=== PATIENT | male | born 1965 | race Caucasian/White ===

== ENCOUNTER 2016-07-11 00:55 | Emergency (ER) | payer MEDICAID ==
[~2016-07-11] VITALS: Ht 172.7 cm; Wt 127.0 kg
[~2016-07-11 00:55] MED LIST: ALPR1TAB2 PO; LISI-603 PO
[2016-07-11 01:31] VITALS: BP 135/81
[2016-07-11] MEDS ORDERED: IBUPROFEN 400 MG TABLET ONE (01:55)
[2016-07-11] MEDS ORDERED: IBUPROFEN 400 MG TABLET PO ONE (02:00)
== END 2016-07-11 03:13 | disposition home or self-care (01) ==
LOC: ER 01:01
DX: M25.562 Pain in left knee (principal); M25.561 Pain in right knee; E11.9 Type 2 diabetes mellitus without complications; I10 Essential (primary) hypertension; F41.9 Anxiety disorder, unspecified; F32.9 Major depressive disorder, single episode, unspecified; Z87.442 Personal history of urinary calculi
CPT/HCPCS: 73564 ×2; 99284; A4606; Z7610

== ENCOUNTER 2016-07-20 18:02 | Emergency (ER) | payer MEDICAID ==
[~2016-07-20] VITALS: Ht 172.7 cm; Wt 132.4 kg
--- NOTE | 2016-07-20 18:02 | NUR ---
bib self, cc: bilateral lower extremity edema x 3 days. pt ambulatory with steady gait. painful when walking. vss. nad noted. rr even and unlabored. pending md carney.
--- NOTE | 2016-07-20 19:00 | NUR ---
REPORT REC'D FROM LORENA ARTEAGA FOR LINDA.
--- NOTE | 2016-07-20 19:05 | NUR ---
lab at bedside for draw
[2016-07-20 19:13] LABS: BASOPHILS # (AUTO) 0.1 /CMM (0.0-0.2); BASOPHILS % (AUTO) 0.9 % (0.0-2.0); EOSINOPHILS # (AUTO) 0.5 /CMM (0.0-0.7); EOSINOPHILS % (AUTO) 5.4 % (0.0-6.0); HEMATOCRIT 35 % (39-51); HEMOGLOBIN 11.9 g/dL (13.5-17.5); LYMPHOCYTES # (AUTO) 2.1 /CMM (0.8-4.8); LYMPHOCYTES % (AUTO) 25.1 % (20.0-44.0); MEAN CORPUSCULAR HEMOGLOBIN 29 PG (26.0-33.0); MEAN CORPUSCULAR HGB CONC 34 g/dl (31.0-36.0); MEAN CORPUSCULAR VOLUME 85 fL (80-96); MONOCYTES # (AUTO) 0.6 /CMM (0.1-1.30); MONOCYTES % (AUTO) 6.6 % (2.0-12.0); NEUTROPHILS # (AUTO) 5.3 /CMM (1.8-8.9); PLATELET COUNT (AUTO) 353 /CMM (150-450); RDW COEFFICIENT OF VARIATION 12.7 (11.5-15.0); RED BLOOD CELL COUNT(AUTO) 4.17 MIL/uL (4.5-6.0); WHITE BLOOD COUNT (AUTO) 8.6 K/uL (4.3-11.0)
[2016-07-20 19:19] LABS: CALCIUM, SERUM 9.2 mg/dL (8.5-10.1); CREATININE 1.3 mg/dL (0.6-1.3); POTASSIUM 5.1 mmol/L (3.5-5.1)
--- NOTE | 2016-07-20 19:27 | NUR ---
VENOUS DUPLEX IN PROGRESS AT THE BEDSIDE.
[2016-07-20] MEDS ORDERED: FUROSEMIDE 20 MG/2 ML VIAL IV ONE (19:30)
[2016-07-20] MEDS ORDERED: FUROSEMIDE 20 MG/2 ML VIAL ONE (19:51)
--- NOTE | 2016-07-20 20:14 | NUR ---
medicated pt as ordered
--- NOTE | 2016-07-20 20:15 | NUR ---
DR. BENEDICT IS AT THE BEDSIDE SPEAKING TO THE PT.
--- NOTE | 2016-07-20 20:38 | NUR ---
Patient discharged to home in stable condition. Written and verbal after care instructions given. Patient verbalizes understanding of instruction AND RX. PT AMBULATED OUT WITH A STEADY GAIT. VSS. PT'S IS PICKING PT UP. PT IS WAITING IN THE LOBBY.
[2016-07-20 20:42] VITALS: BP 147/72
== END 2016-07-20 20:43 | disposition home or self-care (01) ==
LOC: ER 18:09
DX: R60.0 Localized edema (principal); M25.561 Pain in right knee; I10 Essential (primary) hypertension; E11.9 Type 2 diabetes mellitus without complications; Z79.899 Other long term (current) drug therapy; Z87.442 Personal history of urinary calculi; M25.562 Pain in left knee; F32.9 Major depressive disorder, single episode, unspecified; F41.9 Anxiety disorder, unspecified
CPT/HCPCS: 36415; 71010-TC; 80048-TC; 85025-TC; 93970-TC; A4606; J1940; Z7610

== ENCOUNTER 2017-01-02 16:11 | Emergency (ER) | payer MEDICAID ==
[~2017-01-02] VITALS: Ht 175.3 cm; Wt 140.6 kg
--- NOTE | 2017-01-02 17:15 | NUR ---
[facility] [employer] and EMS to the ER for treatment of RFA laceration after he punch a picture frame.
--- NOTE | 2017-01-02 17:27 | NUR ---
LINE STARTED ON R AC G 20, BLOOD AND CULTURES DRAWN FROM LINE AND SENT TO LAB
[2017-01-02] MEDS ORDERED: CLINDAMYCIN 900 MG in IV D5W 50 ML IV SCH (17:30)
[2017-01-02 17:31] LABS: BASOPHILS # (AUTO) 0.1 /CMM (0.0-0.2); BASOPHILS % (AUTO) 0.7 % (0.0-2.0); EOSINOPHILS # (AUTO) 0.4 /CMM (0.0-0.7); EOSINOPHILS % (AUTO) 4.4 % (0.0-6.0); HEMATOCRIT 39 % (39-51); HEMOGLOBIN 12.8 g/dL (13.5-17.5); LYMPHOCYTES % (AUTO) 23.7 % (20.0-44.0); MEAN CORPUSCULAR HEMOGLOBIN 28 PG (26.0-33.0); MEAN CORPUSCULAR HGB CONC 33 g/dl (31.0-36.0); MEAN CORPUSCULAR VOLUME 84 fL (80-96); MONOCYTES # (AUTO) 0.5 /CMM (0.1-1.30); MONOCYTES % (AUTO) 6.5 % (2.0-12.0); NEUTROPHILS # (AUTO) 5.2 /CMM (1.8-8.9); NEUTROPHILS % (AUTO) 64.7 % (43.0-81.0); PLATELET COUNT (AUTO) 351 /CMM (150-450); RDW COEFFICIENT OF VARIATION 12.4 (11.5-15.0); RED BLOOD CELL COUNT(AUTO) 4.59 MIL/uL (4.5-6.0); WHITE BLOOD COUNT (AUTO) 8.3 K/uL (4.3-11.0)
[2017-01-02 17:47] LABS: ALBUMIN 3.3 g/dL (3.4-5.0); BILIRUBIN,DIRECT 0.1 mg/dL (0.0-0.2); BILIRUBIN,TOTAL 0.3 mg/dL (0.2-1.0); CREATININE 0.8 mg/dL (0.6-1.3)
[2017-01-02] MEDS ORDERED: SILVER SULFADIAZINE CREAM 25 GM TUBE TP ONE (18:00)
[2017-01-02] MEDS ORDERED: IV NS 0.9% 1,000 ML BAG IV ONE (18:00)
[2017-01-02] MEDS ORDERED: SILVER SULFADIAZINE CREAM 25 GM TUBE ONE (18:34)
--- NOTE | 2017-01-02 19:40 | NUR ---
Patient discharged to home in stable condition. Written and verbal after care instructions given. Patient verbalizes understanding of instruction.IV removed. Catheter intact and site benign. Pressure and 4x4 applied to site. No bleeding noted.
[2017-01-02 19:41] VITALS: BP 152/97
[2017-01-04] MEDS ORDERED: CLIN300C97 PO (12:34)
== END 2017-01-02 19:42 | disposition home or self-care (01) ==
LOC: ER 16:13
DX: L03.115 Cellulitis of right lower limb (principal); E11.65 Type 2 diabetes mellitus with hyperglycemia; E66.01 Morbid (severe) obesity due to excess calories; I87.2 Venous insufficiency (chronic) (peripheral); L97.519 Non-pressure chronic ulcer of other part of right foot with unspecified severity; F41.9 Anxiety disorder, unspecified; F32.9 Major depressive disorder, single episode, unspecified; Z87.442 Personal history of urinary calculi; Z90.89 Acquired absence of other organs
CPT/HCPCS: 36415; 80048; 80076; 82962; 83605; 85025; 87040 ×2; 93971; 96361; 96365; 99285; A4606; J3490; J7030; J7060

== ENCOUNTER 2017-01-04 06:37 | Inpatient (IN) | payer MEDICAID ==
[~2017-01-04] VITALS: Ht 172.7 cm; Wt 140.6 kg
--- NOTE | 2017-01-04 07:00 | NUR ---
PT BIB SELF FROM HOME, PT HERE FOR A WOUND CHECK FROM 2 DAYS AGO.
--- NOTE | 2017-01-04 07:15 | NUR ---
RAC #18 IV ACCESS. BLOOD SAMPLE COLLECTED SENT TO LAB.
[2017-01-04] MEDS ORDERED: hydrALAZINE HCL IV 20 MG VIAL ONE (07:17)
[2017-01-04] MEDS ORDERED: ONDANSETRON HCL/PF 4 MG/2 ML VIAL ONE (07:17)
[2017-01-04] MEDS ORDERED: MORPHINE SULFATE INJ 2 MG/ML DISP.SYRIN ONE (07:18)
[2017-01-04] MEDS ORDERED: hydrALAZINE HCL IV 20 MG VIAL IV ONE (07:30)
[2017-01-04] MEDS ORDERED: ONDANSETRON HCL/PF - ER 4 MG/2 ML VIAL IV ONE (07:30)
[2017-01-04] MEDS ORDERED: MORPHINE SULFATE INJ 2 MG/ML DISP.SYRIN IV ONE (07:30)
[2017-01-04] MEDS ORDERED: PIPERACILLIN /TAZOBACTAM 3.375 G in IV D5W 50 ML IV ONE (07:30)
[2017-01-04] MEDS ORDERED: IV NS 0.9% 1,000 ML BAG IV ONE (07:30)
[2017-01-04 07:36] LABS: BASOPHILS # (AUTO) 0.1 /CMM (0.0-0.2); BASOPHILS % (AUTO) 0.7 % (0.0-2.0); EOSINOPHILS # (AUTO) 0.6 /CMM (0.0-0.7); EOSINOPHILS % (AUTO) 6.1 % (0.0-6.0); HEMATOCRIT 38 % (39-51); HEMOGLOBIN 12.6 g/dL (13.5-17.5); LYMPHOCYTES # (AUTO) 2.5 /CMM (0.8-4.8); LYMPHOCYTES % (AUTO) 26.4 % (20.0-44.0); MEAN CORPUSCULAR HEMOGLOBIN 28 PG (26.0-33.0); MEAN CORPUSCULAR HGB CONC 33 g/dl (31.0-36.0); MEAN CORPUSCULAR VOLUME 84 fL (80-96); MONOCYTES # (AUTO) 0.8 /CMM (0.1-1.30); NEUTROPHILS # (AUTO) 5.7 /CMM (1.8-8.9); NEUTROPHILS % (AUTO) 58.8 % (43.0-81.0); PLATELET COUNT (AUTO) 351 /CMM (150-450); RDW COEFFICIENT OF VARIATION 13.6 (11.5-15.0); RED BLOOD CELL COUNT(AUTO) 4.51 MIL/uL (4.5-6.0); WHITE BLOOD COUNT (AUTO) 9.6 K/uL (4.3-11.0)
--- NOTE | 2017-01-04 07:44 | NUR ---
HOT[employer] SALES REPRESENTATIVE AT BEDSIDE
[2017-01-04 07:48] LABS: ALBUMIN 3.3 g/dL (3.4-5.0); BILIRUBIN,TOTAL 0.3 mg/dL (0.2-1.0); CALCIUM, SERUM 8.7 mg/dL (8.5-10.1); CREATININE 0.8 mg/dL (0.6-1.3); POTASSIUM 3.7 mmol/L (3.5-5.1)
--- NOTE | 2017-01-04 08:19 | NUR ---
DR FRANK PATRICIA FOR ADMISSION
--- NOTE | 2017-01-04 08:37 | NUR ---
GAVE REPORT TO JASON MARIE ADMITTING . DX CELLULITIS MEDS[facility]G
[2017-01-04] MEDS ORDERED: LISI40TA4 PO (08:47)
[2017-01-04] MEDS ORDERED: METF850T2 PO (08:47)
[2017-01-04] MEDS ORDERED: DULO60CA63 PO (08:47)
[2017-01-04] MEDS ORDERED: CLON0.1T PO (08:47)
[2017-01-04] MEDS ORDERED: METO-304 PO (08:47)
[2017-01-04] MEDS ORDERED: GLIP10TA11 PO (08:47)
[2017-01-04] MEDS ORDERED: GABA-534 PO (08:47)
[2017-01-04] MEDS ORDERED: FINA5TAB11 PO (08:47)
[2017-01-04] MEDS ORDERED: IBUP-1482 PO (08:48)
[2017-01-04] MEDS ORDERED: METH10TA2 PO (08:48)
[2017-01-04] MEDS ORDERED: FINA5TAB3 PO (08:48)
[2017-01-04 09:15] VITALS: BP 163/90
--- NOTE | 2017-01-04 09:59 | NUR ---
AM RN NOTE Received patient from ER @0900 via W/C as accompanied by ER staff. Pt A/O X4 verbally responsive. No acute distress noted. Reap even and non-labored. HL on RAC #18 intact and patent. Body check done and skin pictures placed in chart. Pt oriented to new room and environment. Bed in low locked position. Will continue to monitor and call light with in reach.
[2017-01-04 10:00] VITALS: BP 164/93
--- NOTE | 2017-01-04 10:57 | NUR ---
AM RN NOTE New orders given by Dr. Gu noted and carried out.
[2017-01-04] MEDS ORDERED: HYDROCODONE/APAP 5/325MG 1 EACH TABLET PO PRN (11:00)
[2017-01-04] MEDS ORDERED: IBUPROFEN 800 MG TABLET PO PRN (11:00)
[2017-01-04] MEDS ORDERED: ACETAMINOPHEN 650 MG/20.3 ML UDC PO PRN (11:00)
[2017-01-04] MEDS ORDERED: ALPRAZOLAM 1 MG TABLET PO PRN (11:00)
[2017-01-04] MEDS ORDERED: FEE PK DOSING 1 MIN EA MC ONE (11:28)
[2017-01-04] MEDS ORDERED: LISINOPRIL (20MG) 20 MG TABLET PO SCH (11:30)
[2017-01-04] MEDS ORDERED: VANCOMYCIN 1.5 GM in IV D5W 500 ML IV SCH (12:00)
[2017-01-04] MEDS ORDERED: PIPERACILLIN /TAZOBACTAM 3.375 G in IV D5W 50 ML IV SCH (12:00)
[2017-01-04] MEDS ORDERED: CLIN300C97 PO (12:34)
[2017-01-04] MEDS ORDERED: CLONIDINE HCL 0.1 MG TABLET PO SCH (13:00)
[2017-01-04 16:23] VITALS: BP 139/91
--- NOTE | 2017-01-04 16:25 | NUR ---
AM RN NOTE Discharge (Home) order given by Dr. Gu noted and carried out. Discharge instructions on medications and teachings given to patient and he verbalize understanding. Paperwork signed by patient. Belonging endorsed and signed by patient. Awaiting for to come and picking supervisor patient. All needs met and attended in timely manner. V/S BP139/91 T98.2 P80 R22 PA0/'10 O2 sat 98% at RA.
--- NOTE | 2017-01-04 16:35 | NUR ---
AM RN NOTE Patient refused to take 1700 routine medications, stated he will take meds according to his routine schedule when gets home.
--- NOTE | 2017-01-04 16:41 | NUR ---
AM RN NOTE Patient awake, A/O X4 verbally responsive. No acute distress noted. HL and ID band removed. (Lexy) at bedside. Patient discharged/ left unit at this time as accompanied by and SSIS SSRS DEVELOPER to downstairs with all this belongings.
[2017-01-04] MEDS ORDERED: glipiZIDE 10 MG TABLET PO SCH (17:00)
[2017-01-04] MEDS ORDERED: GABAPENTIN 300 MG CAPSULE PO SCH (17:00)
[2017-01-04] MEDS ORDERED: METFORMIN 850 MG TABLET PO SCH (17:00)
[2017-01-04] MEDS ORDERED: METHADONE HCL 10 MG TABLET PO SCH (17:00)
[2017-01-05] MEDS ORDERED: FINASTERIDE (5 MG) 5 MG TABLET PO SCH (09:00)
[2017-01-05] MEDS ORDERED: METOPROLOL SUCCINATE 50 MG TAB.SR.24H PO SCH (09:00)
[2017-01-05] MEDS ORDERED: DULOXETINE HCL 30 MG CAPSULE.DR PO SCH (09:00)
== END 2017-01-04 16:40 | disposition home or self-care (01) | DRG 383 ==
LOC: ER 06:38 → MED 08:39
PROVIDERS: ADMIT Internal Medicine; ATTEND Internal Medicine
DX: L03.115 Cellulitis of right lower limb (principal); Z68.41 Body mass index [BMI] 40.0-44.9, adult; I10 Essential (primary) hypertension; E11.9 Type 2 diabetes mellitus without complications; E66.9 Obesity, unspecified; L03.116 Cellulitis of left lower limb; S91.101A Unspecified open wound of right great toe without damage to nail, initial encounter; X58.XXXA Exposure to other specified factors, initial encounter; Y93.9 Activity, unspecified; Y92.009 Unspecified place in unspecified non-institutional (private) residence as the place of occurrence of the external cause
CPT/HCPCS: 36415; 73620-TC; 80053-TC; 82962-TC; 85025-TC; 85652-TC; 87081-TC; A4606; J0360; J2270; J2405; J2543; J3370; J7030; J7050; J7060; Z7610

== ENCOUNTER 2017-02-12 18:59 | Emergency (ER) | payer MEDICAID, OTHER ==
[~2017-02-12] VITALS: Ht 172.7 cm; Wt 129.3 kg
[~2017-02-12 18:59] MED LIST changes: +CLON0.1T PO; +DULO60CA63 PO; +FINA5TAB11 PO; +FINA5TAB3 PO; +GABA-534 PO; +GLIP10TA11 PO; +IBUP-1482 PO; -LISI-603 PO; +LISI40TA4 PO; +METF850T2 PO; +METH10TA2 PO; +METO-304 PO
--- NOTE | 2017-02-12 18:59 | NUR ---
CALLED TO TRIAGE, PATIENT IS NOT YET READY.
--- NOTE | 2017-02-12 19:10 | NUR ---
C/O R SHOULDER PAIN RADIATES TO NECK S/P GLF.
--- NOTE | 2017-02-12 19:20 | NUR ---
DR ARTEAGA AT BEDSIDE
[2017-02-12] MEDS ORDERED: HYDROCODONE/APAP 5/325MG 1 EACH TABLET ONE (19:28)
[2017-02-12] MEDS ORDERED: HYDROCODONE/APAP 5/325MG 1 EACH TABLET PO ONE (19:30)
[2017-02-12 20:48] VITALS: BP 178/105
== END 2017-02-12 20:50 | disposition home or self-care (01) ==
LOC: ER 19:03
DX: S43.401A Unspecified sprain of right shoulder joint, initial encounter (principal); E11.9 Type 2 diabetes mellitus without complications; F32.9 Major depressive disorder, single episode, unspecified; I10 Essential (primary) hypertension; F41.9 Anxiety disorder, unspecified; W18.30XA Fall on same level, unspecified, initial encounter; Y93.89 Activity, other specified; Y92.89 Other specified places as the place of occurrence of the external cause; Y99.9 Unspecified external cause status
CPT/HCPCS: 71010; 72040; 73030; 73060; 99284; A4606 ×2; Z7610

== ENCOUNTER 2017-02-16 12:06 | Emergency (ER) | payer MEDICAID, OTHER ==
[~2017-02-16] VITALS: Ht 172.7 cm; Wt 129.3 kg
[2017-02-16 12:13] VITALS: BP 177/112
[2017-02-16] MEDS ORDERED: KETOROLAC TROMETHAMINE INJ 30 MG/ML VIAL ONE (12:27)
[2017-02-16] MEDS ORDERED: KETOROLAC TROMETHAMINE INJ 60 MG/2 ML VIAL IM ONE (12:30)
== END 2017-02-16 12:46 | disposition home or self-care (01) ==
LOC: ER 12:13
DX: M25.511 Pain in right shoulder (principal); M54.2 Cervicalgia; R07.81 Pleurodynia; G89.29 Other chronic pain; E11.621 Type 2 diabetes mellitus with foot ulcer; L97.519 Non-pressure chronic ulcer of other part of right foot with unspecified severity; I10 Essential (primary) hypertension
CPT/HCPCS: 96372; 99283; A4606; J1885; Z7610

== ENCOUNTER 2017-02-17 20:16 | Emergency (ER) | payer MEDICAID ==
[~2017-02-17] VITALS: Ht 172.7 cm; Wt 110.7 kg
--- NOTE | 2017-02-17 23:02 | NUR ---
PT A/OX4 BREATHING EFFORTLESSLY ON ROOM AIR, PT STATES HE WAS AT AN URGENT CARE EARLIER FOR PAIN IN HIS RIGHT SHOULDER AND HIGH BP, PT IS A SYMPTOMATIC BUT BP IS HIGH AT THIS TIME, PT STATES HE HAS BEEN TAKING METHADONE FOR 3 YEARS AND MISSED HIS PAIN DOC APT 5 DAYS AGO AND IS GOING THROUGH WITHDRAWLS, PT IN GOWN, PT ON MONITOR, MD MADE AWARE WILL CONTINUE TO MONITOR.
--- NOTE | 2017-02-17 23:36 | NUR ---
MD MADE AWARE OF BP NO ORDERS AT THIS TIME, PT IS ASYMPTOMATIC AT THIS TIME, WILL CONTINUE TO MONITOR.
[2017-02-17] MEDS ORDERED: IBUPROFEN 600 MG TABLET PO ONE (23:48)
[2017-02-17] MEDS ORDERED: CLONIDINE HCL 0.1 MG TABLET ONE (23:48)
[2017-02-18] MEDS ORDERED: CLONIDINE HCL 0.1 MG TABLET PO ONE
[2017-02-18] MEDS ORDERED: IBUPROFEN 400 MG TABLET PO ONE ×2
--- NOTE | 2017-02-18 00:32 | NUR ---
Patient discharged to home in stable condition. Written and verbal after care instructions given. Patient verbalizes understanding of instruction.
[2017-02-18 00:34] VITALS: BP 174/94
== END 2017-02-18 00:35 | disposition home or self-care (01) ==
LOC: ER 20:16
DX: G89.4 Chronic pain syndrome (principal); F11.10 Opioid abuse, uncomplicated; I10 Essential (primary) hypertension; E11.9 Type 2 diabetes mellitus without complications; F41.9 Anxiety disorder, unspecified; F32.9 Major depressive disorder, single episode, unspecified; Z87.442 Personal history of urinary calculi; Z90.89 Acquired absence of other organs; Z79.84 Long term (current) use of oral hypoglycemic drugs
CPT/HCPCS: 99283; A4606; Z7610

== ENCOUNTER 2018-02-07 15:57 | Inpatient (IN) | payer MEDICAID ==
[~2018-02-07] VITALS: Ht 172.7 cm; Wt 147.0 kg
[~2018-02-07 15:57] MED LIST changes: -IBUP-1482 PO; +IBUP-1957 PO; +METF-441 PO; -METF850T2 PO; -METO-304 PO; +METO-357 PO
[2018-02-07 16:12] LABS: BASOPHILS # (AUTO) 0.1 /CMM (0.0-0.2); EOSINOPHILS % (AUTO) 7.5 % (0.0-6.0); HEMATOCRIT 40 % (39-51); HEMOGLOBIN 13.3 g/dL (13.5-17.5); LYMPHOCYTES # (AUTO) 2.1 /CMM (0.8-4.8); LYMPHOCYTES % (AUTO) 30.9 % (20.0-44.0); MEAN CORPUSCULAR HGB CONC 34 g/dl (31.0-36.0); MEAN CORPUSCULAR VOLUME 84 fL (80-96); MONOCYTES # (AUTO) 0.6 /CMM (0.1-1.30); MONOCYTES % (AUTO) 8.6 % (2.0-12.0); NEUTROPHILS # (AUTO) 3.6 /CMM (1.8-8.9); PLATELET COUNT (AUTO) 298 /CMM (150-450); RDW COEFFICIENT OF VARIATION 12.4 (11.5-15.0); RED BLOOD CELL COUNT(AUTO) 4.73 MIL/uL (4.5-6.0); WHITE BLOOD COUNT (AUTO) 6.9 K/uL (4.3-11.0)
[2018-02-07 16:26] LABS: ALANINE AMINOTRANSFERASE 27 U/L (12-78); ALBUMIN 3.4 g/dL (3.4-5.0); ALKALINE PHOSPHATASE 62 U/L (46-116); ASPARTATE AMINOTRANSFERASE 21 U/L (15-37); BILIRUBIN,TOTAL 0.3 mg/dL (0.2-1.0); LIPASE 127 U/L (73-393); TOTAL PROTEIN, SERUM 7.1 g/dL (6.4-8.2)
[2018-02-07] MEDS ORDERED: LORAZEPAM 0.5 MG TABLET PO ONE (16:30)
[2018-02-07] MEDS ORDERED: ENALAPRILAT INJ (1.25 MG/ML) 1.25 MG/ML VIAL IV PRN (16:30)
[2018-02-07] MEDS ORDERED: IV NS 0.9% 500 ML BAG IV ONE (16:30)
[2018-02-07 16:32] LABS: TROPONIN I < 0.017 ng/mL (0.00-0.056)
[2018-02-07] MEDS ORDERED: CT SWABBABLE VALVE TRANS SET 1 EA INFUS.SET MC ONE (16:34)
[2018-02-07] MEDS ORDERED: IOHEXOL-350 100 ML VIAL IV ONE (16:34)
[2018-02-07] MEDS ORDERED: LORAZEPAM 1 MG TABLET ONE (16:44)
[2018-02-07] MEDS ORDERED: ENALAPRILAT DIHYD. (2.5MG/ML) 1.25 MG/ML VIAL IV ONE (16:44)
[2018-02-07] MEDS ORDERED: hydrALAZINE HCL IV 20 MG VIAL ONE (17:58)
[2018-02-07] MEDS ORDERED: hydrALAZINE HCL IV 20 MG VIAL IV ONE (18:00)
[2018-02-07 18:14] LABS: CALCIUM, SERUM 9.2 mg/dL (8.5-10.1); CREATININE 0.7 mg/dL (0.6-1.3); POTASSIUM 4.7 mmol/L (3.5-5.1)
[2018-02-07] MEDS ORDERED: CANA300T PO (18:27)
[2018-02-07] MEDS ORDERED: OMEP20TA5 PO (18:27)
[2018-02-07] MEDS ORDERED: NIFEdipine (10MG) 10 MG CAPSULE ONE (19:56)
[2018-02-07] MEDS ORDERED: NIFEdipine XL 60 MG TAB PO ONE ×2 (20:00→20:12)
[2018-02-07] MEDS ORDERED: *INSULIN REGULAR(HUMULIN R)HUM 100 UNIT/ML VIAL SQ PRN (21:00)
[2018-02-07] MEDS ORDERED: ALPRAZOLAM 0.25 MG TABLET PO PRN (21:00)
[2018-02-07] MEDS ORDERED: DEXTROSE 50%-WATER 50 ML DISP.SYRIN IV PRN (21:00)
[2018-02-07] MEDS ORDERED: ACETAMINOPHEN ES 500 MG TABLET PO PRN (21:00)
[2018-02-07 21:13] VITALS: BP 191/92
[2018-02-07] MEDS ORDERED: IBUPROFEN 800 MG TABLET PO PRN (22:00)
[2018-02-07] MEDS: CLONIDINE HCL 0.1 MG TABLET PO PRN (22:28)
[2018-02-07] MEDS: GABAPENTIN 300 MG CAPSULE PO SCH (22:28)
[2018-02-07] MEDS: BLOOD SUGAR DIAGNOSTIC 1 EACH STRIP VI SCH (22:28)
[2018-02-07] MEDS ORDERED: IBUPROFEN 400 MG TABLET ONE (22:30)
[2018-02-08 00:16] VITALS: BP 165/90
[2018-02-08 03:59] VITALS: BP 161/94
[2018-02-08] MEDS ORDERED: IBUPROFEN 400 MG TABLET PO PRN ×2 (04:00→07:30)
[2018-02-08] MEDS: CLONIDINE HCL 0.1 MG TABLET PO PRN (04:44)
[2018-02-08 05:48] LABS: THYROID STIMULATING HORMONE 2.478 uIU/mL (0.358-3.74)
[2018-02-08] MEDS: BLOOD SUGAR DIAGNOSTIC 1 EACH STRIP VI SCH ×2 (06:09→12:01)
[2018-02-08] MEDS: INSULIN REGULAR, HUMAN 100 UNIT/ML 3 ML VIAL SQ PRN ×2 (06:13→12:02)
[2018-02-08 08:00] VITALS: BP 131/73
[2018-02-08] MEDS ORDERED: ATORVASTATIN 10 MG TABLET PO SCH ×3 (08:30→22:00)
[2018-02-08] MEDS: GABAPENTIN 300 MG CAPSULE PO SCH ×2 (08:48→13:14)
[2018-02-08] MEDS ORDERED: NIFEdipine XL (30MG) 30 MG TAB PO SCH (09:00)
[2018-02-08] MEDS ORDERED: ASPIRIN 325 MG TABLET PO SCH (09:00)
[2018-02-08] MEDS ORDERED: GABAPENTIN 300 MG CAPSULE PO SCH (09:00)
[2018-02-08] MEDS ORDERED: LISINOPRIL (20MG) 20 MG TABLET PO SCH (09:00)
[2018-02-08] MEDS ORDERED: glipiZIDE 5 MG TABLET PO SCH (09:00)
[2018-02-08] MEDS ORDERED: ASPIRIN EC 81 MG TABLET.DR PO SCH (09:00)
[2018-02-08] MEDS ORDERED: DULOXETINE HCL 30 MG CAPSULE.DR PO SCH (09:00)
[2018-02-08] MEDS ORDERED: METOPROLOL SUCCINATE 50 MG TAB.SR.24H PO SCH (09:00)
[2018-02-08] MEDS: METFORMIN 850 MG TABLET PO SCH ×2 (09:51→13:14)
[2018-02-08 16:00] VITALS: BP 134/68
== END 2018-02-08 16:00 | disposition home or self-care (01) | DRG 45 ==
LOC: ER 15:59 → TELE 20:02 → MED 02-08 08:31
PROVIDERS: ADMIT Internal Medicine; ATTEND Internal Medicine
DX: I63.9 Cerebral infarction, unspecified (principal); Z68.42 Body mass index [BMI] 45.0-49.9, adult; E11.9 Type 2 diabetes mellitus without complications; E66.9 Obesity, unspecified; F41.9 Anxiety disorder, unspecified; I16.1 Hypertensive emergency; E78.5 Hyperlipidemia, unspecified; F32.9 Major depressive disorder, single episode, unspecified; F40.240 Claustrophobia; G89.29 Other chronic pain; I10 Essential (primary) hypertension; Z79.84 Long term (current) use of oral hypoglycemic drugs; Z86.73 Personal history of transient ischemic attack (TIA), and cerebral infarction without residual deficits; Z79.82 Long term (current) use of aspirin; Z87.442 Personal history of urinary calculi; R29.810 Facial weakness
CPT/HCPCS: 36415; 70450-TC; 70496-TC; 70498-TC; 71045-TC; 80048-TC; 80061-TC; 80076-TC; 80305; 82962-TC; 83690-TC; 84443-TC; 84484-TC; 85025-TC; 85652-TC; 87081-TC; 92521; 92611-TC; 93307-TC; A4606; A6402; G0378; J0360; J1815; J3490; J7040; Q9967; Z7610

== ENCOUNTER 2018-06-23 13:50 | Emergency (ER) | payer MEDICAID ==
[~2018-06-23] VITALS: Ht 175.3 cm; Wt 137.9 kg
[~2018-06-23 13:50] MED LIST changes: +CANA300T PO; -FINA5TAB11 PO; -FINA5TAB3 PO; -IBUP-1957 PO; -METH10TA2 PO; +OMEP20TA5 PO
--- NOTE | 2018-06-23 14:00 | NUR ---
PT BIB RA 39 FROM HOME,SLURRED SPEECH AND LEFT HAND NUMBNESS AT 1039. ON ROOM AIR, BREATHING EVENLY AND UNLABORED. CONNECTED TO THE MONITOR, AND PULSE OX. DENIES ANY PAIN AT THIS TIME. KEPT COMFORTABLE, WILL CONTINUE TO MONITOR ACCORDINGLY.
[2018-06-23 14:15] LABS: BASOPHILS # (AUTO) 0.1 /CMM (0.0-0.2); BASOPHILS % (AUTO) 0.9 % (0.0-2.0); HEMATOCRIT 39 % (39-51); HEMOGLOBIN 13.3 g/dL (13.5-17.5); LYMPHOCYTES # (AUTO) 2.2 /CMM (0.8-4.8); LYMPHOCYTES % (AUTO) 26.4 % (20.0-44.0); MEAN CORPUSCULAR HGB CONC 34 g/dl (31.0-36.0); MEAN CORPUSCULAR VOLUME 87 fL (80-96); MONOCYTES # (AUTO) 0.9 /CMM (0.1-1.30); MONOCYTES % (AUTO) 11.1 % (2.0-12.0); NEUTROPHILS # (AUTO) 4.7 /CMM (1.8-8.9); NEUTROPHILS % (AUTO) 57.6 % (43.0-81.0); PLATELET COUNT (AUTO) 344 /CMM (150-450); RED BLOOD CELL COUNT(AUTO) 4.48 MIL/uL (4.5-6.0); WHITE BLOOD COUNT (AUTO) 8.2 K/uL (4.3-11.0)
[2018-06-23 14:17] LABS: CALCIUM, SERUM 9.7 mg/dL (8.5-10.1); CARBON DIOXIDE 32 mmol/L (21-32); CHLORIDE 103 mmol/L (98-107); CREATININE 0.7 mg/dL (0.6-1.3); GLUCOSE 112 mg/dL (74-106); POTASSIUM 3.5 mmol/L (3.5-5.1); SODIUM SERUM 142 mmol/L (136-145); UREA NITROGEN, BLOOD 14 mg/dL (7-18)
[2018-06-23] MEDS ORDERED: CT SWABBABLE VALVE TRANS SET 1 EA INFUS.SET MC ONE (14:28)
[2018-06-23] MEDS ORDERED: IV NS 0.9% 250 ML IV ONE (14:28)
[2018-06-23] MEDS ORDERED: IOHEXOL-350 100 ML VIAL IV ONE (14:28)
[2018-06-23 14:44] LABS: CHOLESTEROL 119 mg/dL (<200); HDL CHOLESTEROL 50 mg/dL (40-60); LDL 59 mg/dL (0-99); TRIGLYCERIDES 91 mg/dL (30-150)
[2018-06-23] MEDS ORDERED: hydrALAZINE HCL IV 20 MG VIAL ONE (14:50)
[2018-06-23] MEDS ORDERED: ACETAMINOPHEN ES 500 MG TABLET ONE (14:51)
--- NOTE | 2018-06-23 14:53 | NUR ---
PATIENT WENT FOR CT SCAN.
[2018-06-23] MEDS: hydrALAZINE HCL IV 20 MG VIAL IV ONE (15:11)
[2018-06-23] MEDS: ACETAMINOPHEN ES 500 MG TABLET PO ONE (15:11)
[2018-06-23 16:36] VITALS: BP 140/88
== END 2018-06-23 16:39 | disposition home or self-care (01) ==
LOC: ER 13:52
DX: G45.9 Transient cerebral ischemic attack, unspecified (principal); E11.9 Type 2 diabetes mellitus without complications; I10 Essential (primary) hypertension; E78.5 Hyperlipidemia, unspecified; F41.9 Anxiety disorder, unspecified; F32.9 Major depressive disorder, single episode, unspecified; E66.9 Obesity, unspecified; I51.7 Cardiomegaly; Z86.73 Personal history of transient ischemic attack (TIA), and cerebral infarction without residual deficits; Z87.442 Personal history of urinary calculi; Z90.89 Acquired absence of other organs; Z98.890 Other specified postprocedural states
CPT/HCPCS: 36415; 70450-TC; 70496-TC; 70498-TC; 71045-TC; 80048-TC; 80061-TC; 82962-TC; 84484-TC; 85025-TC; 85730-TC; J0360; J7050; Q9967

== ENCOUNTER 2019-04-03 19:54 | Emergency (ER) | payer MEDICAID ==
[~2019-04-03] VITALS: Ht 175.3 cm; Wt 136.1 kg
[~2019-04-03 19:54] MED LIST changes: -DULO60CA63 PO; +DULO60CA64 PO
--- NOTE | 2019-04-03 20:00 | NUR ---
TO ER BED 1 AMBULATORY C/O LOW BACK PAIN SINCE THIS MORNING. PT DENIES TRAUMA. HX. OF KIDNEY STONE. PT AAOX4 NO ACUTE DISTRESS NOTED, RESP EVEN AND UNLABORED. PENDING ER MD GALLOWAY.
--- NOTE | 2019-04-03 20:30 | NUR ---
URINE COLLECTED AND SENT TO LAB
[2019-04-03] MEDS ORDERED: ONDANSETRON HCL/PF 4 MG/2 ML VIAL ONE (20:35)
[2019-04-03] MEDS ORDERED: KETOROLAC TROMETHAMINE INJ 30 MG/ML VIAL ONE (20:35)
[2019-04-03 20:47] LABS: BASOPHILS # (AUTO) 0.1 /CMM (0.0-0.2); EOSINOPHILS % (AUTO) 3.4 % (0.0-6.0); HEMATOCRIT 44 % (39-51); HEMOGLOBIN 14.1 g/dL (13.5-17.5); LYMPHOCYTES # (AUTO) 2.2 /CMM (0.8-4.8); LYMPHOCYTES % (AUTO) 21.2 % (20.0-44.0); MEAN CORPUSCULAR HGB CONC 32 g/dl (31.0-36.0); MEAN CORPUSCULAR VOLUME 87 fL (80-96); MONOCYTES # (AUTO) 0.9 /CMM (0.1-1.30); MONOCYTES % (AUTO) 8.9 % (2.0-12.0); NEUTROPHILS # (AUTO) 6.9 /CMM (1.8-8.9); NEUTROPHILS % (AUTO) 65.5 % (43.0-81.0); PLATELET COUNT (AUTO) 399 /CMM (150-450); RED BLOOD CELL COUNT(AUTO) 5.05 MIL/uL (4.5-6.0); WHITE BLOOD COUNT (AUTO) 10.5 K/uL (4.3-11.0)
--- NOTE | 2019-04-03 20:51 | NUR ---
PT TRANSPORTED TO RADIOLOGY FOR CT ABD/PELVIS
[2019-04-03] MEDS ORDERED: IV NS 0.9% 1,000 ML BAG IV ONE (21:00)
[2019-04-03] MEDS ORDERED: KETOROLAC TROMETHAMINE INJ 30 MG/ML VIAL IV ONE (21:00)
[2019-04-03] MEDS ORDERED: ONDANSETRON HCL/PF 4 MG/2 ML VIAL IVP ONE (21:00)
--- NOTE | 2019-04-03 21:05 | NUR ---
PT RETRUN FROM CT.
[2019-04-03 21:14] LABS: APPEARANCE,URINE Clear (CLEAR); BILIRUBIN,URINE SMALL (NEGATIVE); BLOOD, URINE Negative Ery/uL (NEGATIVE); COLOR,URINE Yellow (YELLOW); KETONES,URINE 40 (NEGATIVE); LEUKOCYTE ESTERASE ,URINE Negative (NEGATIVE); NITRITE, URINE Negative (NEGATIVE); PH,URINE 5.5 (5.0-8.0); PROTEIN,URINE 30 mg/dl (NEGATIVE); UGLUCOSE 500 MG/DL mg/dL (NEGATIVE); UROBILINOGEN,URINE 0.2 EU/dL (0.2)
--- NOTE | 2019-04-03 21:16 | NUR ---
PT STILL C/O LOW BACK PAIN 12/11. ER MD MADE AWARE WITH ORDERS RECEIVED. WILL CARRY OUT ORDERS.
[2019-04-03] MEDS ORDERED: HYDROCODONE/APAP 10/325MG 1 EA TABLET ONE (21:18)
--- NOTE | 2019-04-03 21:20 | NUR ---
PT MEDICATED ORDERED.
[2019-04-03 21:22] LABS: BACTERIA,URINE Rare /HPF (None Seen); RBC,URINE NONE SEEN /HPF (0-2); SQUAMOUS EPITHELIAL CELL,UR Few /HPF (None Seen); WBC,URINE NONE SEEN /HPF (0-3)
[2019-04-03 21:27] LABS: CALCIUM, SERUM 9.6 mg/dL (8.5-10.1); POTASSIUM 3.9 mmol/L (3.5-5.1)
[2019-04-03] MEDS ORDERED: METHOCARBAMOL (500MG) 500 MG TABLET PO ONE (21:30)
[2019-04-03] MEDS ORDERED: HYDROCODONE/APAP 10/325MG 1 EA TABLET PO ONE (21:30)
[2019-04-03 21:33] LABS: BILIRUBIN,TOTAL 0.3 mg/dL (0.2-1.0); TOTAL PROTEIN, SERUM 8.3 g/dL (6.4-8.2)
--- NOTE | 2019-04-03 21:49 | NUR ---
IV removed. Catheter intact and site benign. Pressure and 4x4 applied to site. No bleeding noted. Patient discharged to home in stable condition. Written and verbal after care instructions given. Patient verbalizes understanding of instruction. ambulatory with a steady gait noted. pt aaox4 no acute distress noted, resp even and unlabored. advice pt not to drive or operate any machinery due to pt was given anrcotic medicine. pt verbalize understanding.
[2019-04-03 21:51] VITALS: BP 163/83
== END 2019-04-03 22:14 | disposition home or self-care (01) ==
LOC: ER 19:56
DX: S39.012A Strain of muscle, fascia and tendon of lower back, initial encounter (principal); E86.0 Dehydration; E11.65 Type 2 diabetes mellitus with hyperglycemia; E66.01 Morbid (severe) obesity due to excess calories; I10 Essential (primary) hypertension; F41.9 Anxiety disorder, unspecified; F32.9 Major depressive disorder, single episode, unspecified; Z68.41 Body mass index [BMI] 40.0-44.9, adult; Z87.442 Personal history of urinary calculi; Z86.73 Personal history of transient ischemic attack (TIA), and cerebral infarction without residual deficits; Z90.89 Acquired absence of other organs; Z98.890 Other specified postprocedural states; Z79.899 Other long term (current) drug therapy; W18.39XA Other fall on same level, initial encounter; Y93.89 Activity, other specified; Y92.89 Other specified places as the place of occurrence of the external cause; Y99.8 Other external cause status
CPT/HCPCS: 36415; 74176; 80048; 80076; 81001; 83690; 85025; 96361; 96374; 96375; 99284; J1885; J2405; J7030; 81000-TC

== ENCOUNTER 2019-10-15 21:01 | Emergency (ER) | payer MEDICAID ==
[~2019-10-15] VITALS: Ht 175.3 cm; Wt 127.0 kg
--- NOTE | 2019-10-15 21:05 | NUR ---
PT AAOX4. BIBSELF C/O LOWER BACK PAIN. PT HAS HX OF STONES. PLACED IN BED 3, ON MONITOR AND PULSE OX. VSS.
[2019-10-15] MEDS ORDERED: KETOROLAC TROMETHAMINE INJ 30 MG/ML VIAL ONE (21:25)
[2019-10-15] MEDS ORDERED: KETOROLAC TROMETHAMINE INJ 30 MG/ML VIAL IV ONE (21:30)
[2019-10-15] MEDS ORDERED: IV NS 0.9% 1,000 ML BAG IV ONE (21:30)
[2019-10-15 21:35] LABS: BASOPHILS # (AUTO) 0.1 /CMM (0.0-0.2); BASOPHILS % (AUTO) 1.1 % (0.0-2.0); EOSINOPHILS % (AUTO) 7.7 % (0.0-6.0); HEMATOCRIT 40 % (39-51); HEMOGLOBIN 13.1 g/dL (13.5-17.5); LYMPHOCYTES # (AUTO) 1.5 /CMM (0.8-4.8); LYMPHOCYTES % (AUTO) 25.1 % (20.0-44.0); MEAN CORPUSCULAR HGB CONC 33 g/dl (31.0-36.0); MEAN CORPUSCULAR VOLUME 85 fL (80-96); MONOCYTES # (AUTO) 0.6 /CMM (0.1-1.30); MONOCYTES % (AUTO) 9.4 % (2.0-12.0); NEUTROPHILS # (AUTO) 3.4 /CMM (1.8-8.9); NEUTROPHILS % (AUTO) 56.7 % (43.0-81.0); PLATELET COUNT (AUTO) 307 /CMM (150-450); RED BLOOD CELL COUNT(AUTO) 4.71 MIL/uL (4.5-6.0)
--- NOTE | 2019-10-15 21:36 | NUR ---
AUT[employer] MECHANICS INSTRUCTOR AT BEDSIDE FOR LABS AND URINE.
[2019-10-15 21:37] LABS: APPEARANCE,URINE Clear (CLEAR); BILIRUBIN,URINE Negative (NEGATIVE); BLOOD, URINE Negative Ery/uL (NEGATIVE); COLOR,URINE Yellow (YELLOW); KETONES,URINE Negative (NEGATIVE); LEUKOCYTE ESTERASE ,URINE Negative (NEGATIVE); NITRITE, URINE Negative (NEGATIVE); PH,URINE 6.5 (5.0-8.0); PROTEIN,URINE 100 mg/dl (NEGATIVE); UGLUCOSE >=1000 mg/dL (NEGATIVE); UROBILINOGEN,URINE 0.2 EU/dL (0.2)
--- NOTE | 2019-10-15 21:39 | NUR ---
BROUGHT TO CT
[2019-10-15 21:40] LABS: BACTERIA,URINE None seen /HPF (None Seen); RBC,URINE 0-2 /HPF (0-2); SQUAMOUS EPITHELIAL CELL,UR 0-2 /HPF (None Seen); WBC,URINE 0-2 /HPF (0-3)
[2019-10-15 21:55] LABS: ALBUMIN 3.5 g/dL (3.4-5.0); BILIRUBIN,DIRECT 0.1 mg/dL (0.0-0.2); BILIRUBIN,TOTAL 0.3 mg/dL (0.2-1.0); CALCIUM, SERUM 9.4 mg/dL (8.5-10.1); CREATININE 0.9 mg/dL (0.6-1.3); POTASSIUM 4.3 mmol/L (3.5-5.1); TOTAL PROTEIN, SERUM 7.4 g/dL (6.4-8.2)
--- NOTE | 2019-10-15 22:15 | NUR ---
IV removed. Catheter intact and site benign. Pressure and 4x4 applied to site. No bleeding noted.
--- NOTE | 2019-10-15 22:22 | NUR ---
Patient discharged to home in stable condition. Written and verbal after care instructions given. Patient verbalizes understanding of instruction.
[2019-10-15 22:23] VITALS: BP 132/79
== END 2019-10-15 22:24 | disposition home or self-care (01) ==
LOC: ER 21:01
DX: R10.9 Unspecified abdominal pain (principal); E11.65 Type 2 diabetes mellitus with hyperglycemia; I10 Essential (primary) hypertension; F41.9 Anxiety disorder, unspecified; F32.9 Major depressive disorder, single episode, unspecified; Z98.890 Other specified postprocedural states; Z79.899 Other long term (current) drug therapy; Z86.73 Personal history of transient ischemic attack (TIA), and cerebral infarction without residual deficits; Z87.442 Personal history of urinary calculi
CPT/HCPCS: 36415; 74176; 80048; 80076; 81001; 83690; 85025; 96361; 96374; 99284; J1885; J7030; 81000-TC

== ENCOUNTER 2020-01-02 22:40 | Emergency (ER) | payer MEDICAID ==
[~2020-01-02] VITALS: Ht 175.3 cm; Wt 129.3 kg
--- NOTE | 2020-01-02 23:29 | NUR ---
PATIENT CAME TO ER BED 10 C/O NAUSEA. PATIENT ALSO FEELS DIZZY. PATIENT STATES THAT HE HAS A HX OF STROKE. PATIENT IS AAOX4. NO SOB. BREATHING EVENLY AND UNLABORED ON ROOM AIR. CONNECTED TO MONITOR.
[2020-01-02] MEDS ORDERED: ONDANSETRON 4 MG TAB.RAPDIS SL ONE (23:30)
[2020-01-02] MEDS ORDERED: MECLIZINE HCL 25 MG TABLET PO ONE (23:30)
[2020-01-02] MEDS ORDERED: CLOPIDOGREL BISULFATE 300 MG TABLET PO ONE (23:30)
[2020-01-02] MEDS ORDERED: ONDANSETRON 4 MG TAB.RAPDIS ONE (23:45)
[2020-01-02] MEDS ORDERED: MECLIZINE HCL 25 MG TABLET ONE (23:45)
[2020-01-02] MEDS ORDERED: CLOPIDOGREL BISULFATE 75 MG TABLET ONE (23:45)
[2020-01-02] MEDS ORDERED: ASPIRIN 81 MG TAB.CHEW ONE (23:45)
[2020-01-03] MEDS ORDERED: ASPIRIN 81 MG TAB.CHEW PO ONE
--- NOTE | 2020-01-03 00:15 | NUR ---
TAKEN TO CT.
[2020-01-03 00:34] LABS: BASOPHILS % (AUTO) 0.3 % (0.0-2.0); EOSINOPHILS % (AUTO) 1.6 % (0.0-6.0); HEMATOCRIT 40 % (39-51); HEMOGLOBIN 12.9 g/dL (13.5-17.5); LYMPHOCYTES # (AUTO) 1.6 /CMM (0.8-4.8); LYMPHOCYTES % (AUTO) 14.7 % (20.0-44.0); MEAN CORPUSCULAR HGB CONC 32 g/dl (31.0-36.0); MEAN CORPUSCULAR VOLUME 85 fL (80-96); MONOCYTES # (AUTO) 0.7 /CMM (0.1-1.30); MONOCYTES % (AUTO) 6.3 % (2.0-12.0); NEUTROPHILS # (AUTO) 8.6 /CMM (1.8-8.9); NEUTROPHILS % (AUTO) 77.1 % (43.0-81.0); PLATELET COUNT (AUTO) 400 /CMM (150-450); RED BLOOD CELL COUNT(AUTO) 4.72 MIL/uL (4.5-6.0); WHITE BLOOD COUNT (AUTO) 11.2 K/uL (4.3-11.0)
[2020-01-03 00:56] LABS: ALANINE AMINOTRANSFERASE 19 U/L (12-78); ALBUMIN 3.5 g/dL (3.4-5.0); ALKALINE PHOSPHATASE 69 U/L (46-116); ASPARTATE AMINOTRANSFERASE 17 U/L (15-37); B-TYPE NATRIURETIC PEPTIDE 168 PG/ML (0-125); BILIRUBIN,DIRECT 0.1 mg/dL (0.0-0.2); BILIRUBIN,TOTAL 0.3 mg/dL (0.2-1.0); CARBON DIOXIDE 25 mmol/L (21-32); CHLORIDE 98 mmol/L (98-107); CREATININE 0.7 mg/dL (0.6-1.3); POTASSIUM 4.4 mmol/L (3.5-5.1); TOTAL PROTEIN, SERUM 7.9 g/dL (6.4-8.2); UREA NITROGEN, BLOOD 15 mg/dL (7-18)
[2020-01-03 01:22] LABS: GLUCOSE 186 mg/dL (74-106); SODIUM SERUM 135 mmol/L (136-145)
--- NOTE | 2020-01-03 01:39 | NUR ---
COVID SWAB COLLECTED NAD SENT TO THE LAB.
--- NOTE | 2020-01-03 03:18 | NUR ---
PATIENT IS AAOX4. NO SOB. BREATHING EVENLY AND UNLABORED ON ROOM AIR. CONNECTED TO THE MONITOR. PATIENT IS AMBULATING TO THE RESTROOM WITH A STEADY GAIT. PATIENT STATES THAT HE HAS A TENSION HEADACHE. MD NOTIFIED.
[2020-01-03 03:51] VITALS: BP 122/76
[2020-01-03] MEDS ORDERED: IBUPROFEN 400 MG TABLET ONE (04:00)
[2020-01-03] MEDS ORDERED: IBUPROFEN 400 MG TABLET PO ONE (04:00)
--- NOTE | 2020-01-03 04:18 | NUR ---
Note destin in EDM - 01/03/20 at 0418 by PO Patient does not wish to proceed with medical care recommended by ( ). Patient given information related to possible complications, up to and including , which could occur as a result of leaving the hospital at this time. Patient verbalizes understanding of risks involved due to leaving against medical advice. Patient has signed AMA form.
--- NOTE | 2020-01-03 04:18 | NUR ---
Patient does not wish to proceed with medical care recommended by Dr. Sawyer. Patient given information related to possible complications, up to and including , which could occur as a result of leaving the hospital at this time. Patient verbalizes understanding of risks involved due to leaving against medical advice. Patient has signed AMA form.
--- NOTE | 2020-01-03 04:18 | NUR ---
IV removed. Catheter intact and site benign. Pressure and 4x4 applied to site. No bleeding noted.
== END 2020-01-03 04:20 | disposition left against medical advice (07) ==
LOC: ER 22:41
DX: R42 Dizziness and giddiness (principal); R11.2 Nausea with vomiting, unspecified; R94.31 Abnormal electrocardiogram [ECG] [EKG]; R51 Headache; Z20.828 Contact with and (suspected) exposure to other viral communicable diseases; Z86.73 Personal history of transient ischemic attack (TIA), and cerebral infarction without residual deficits; I10 Essential (primary) hypertension; F41.9 Anxiety disorder, unspecified; G89.4 Chronic pain syndrome; E11.9 Type 2 diabetes mellitus without complications; Z79.84 Long term (current) use of oral hypoglycemic drugs; Z87.442 Personal history of urinary calculi; E78.00 Pure hypercholesterolemia, unspecified
CPT/HCPCS: 36415; 70450; 71045; 80048; 80076; 83880; 84484 ×2; 85025; 85730; 87426; 93005; 99285; C9803; J8597; Q0162

== ENCOUNTER 2020-01-09 10:41 | Emergency (ER) | payer MEDICAID ==
[~2020-01-09] VITALS: Ht 175.3 cm; Wt 124.7 kg
--- NOTE | 2020-01-09 10:41 | NUR ---
PT BIB SELF C/O PALPITATIONS STARTED LAST NIGHT. PT IS AAOX4, NOT IN RESPIRATORY DISTRESS, HOOKED TO SCREW MACHINE SET UP OPERATOR TOOL, KEPT RESTED AND COMFORTABLE. WILL CONTINUE TO MONITOR.
--- NOTE | 2020-01-09 10:58 | NUR ---
AT BEDSIDE FOR EVAL.
[2020-01-09] MEDS ORDERED: LORAZEPAM 1 MG TABLET ONE (11:15)
--- NOTE | 2020-01-09 11:18 | NUR ---
SPECIAL EVENTS FUNDRAISER AT BEDSIDE FOR XRAY.
[2020-01-09 11:19] LABS: BASOPHILS # (AUTO) 0.1 /CMM (0.0-0.2); EOSINOPHILS % (AUTO) 1.1 % (0.0-6.0); HEMATOCRIT 42 % (39-51); HEMOGLOBIN 13.7 g/dL (13.5-17.5); MEAN CORPUSCULAR HGB CONC 33 g/dl (31.0-36.0); MEAN CORPUSCULAR VOLUME 86 fL (80-96); MONOCYTES % (AUTO) 8.7 % (2.0-12.0); NEUTROPHILS # (AUTO) 8.5 /CMM (1.8-8.9); NEUTROPHILS % (AUTO) 72.2 % (43.0-81.0); PLATELET COUNT (AUTO) 542 /CMM (150-450); RED BLOOD CELL COUNT(AUTO) 4.86 MIL/uL (4.5-6.0); WHITE BLOOD COUNT (AUTO) 11.8 K/uL (4.3-11.0)
[2020-01-09 11:30] LABS: CALCIUM, SERUM 9.4 mg/dL (8.5-10.1); CARBON DIOXIDE 23 mmol/L (21-32); CHLORIDE 96 mmol/L (98-107); CREATININE 0.8 mg/dL (0.6-1.3); GLUCOSE 202 mg/dL (74-106); POTASSIUM 4.4 mmol/L (3.5-5.1); SODIUM SERUM 132 mmol/L (136-145); UREA NITROGEN, BLOOD 19 mg/dL (7-18)
[2020-01-09] MEDS ORDERED: LORAZEPAM 1 MG TABLET PO ONE (11:30)
--- NOTE | 2020-01-09 11:48 | NUR ---
Patient discharged to home in stable condition. Written and verbal after care instructions given. Patient verbalizes understanding of instruction.
[2020-01-09 11:49] VITALS: BP 143/77
== END 2020-01-09 11:50 | disposition home or self-care (01) ==
LOC: ER 10:46
DX: F41.9 Anxiety disorder, unspecified (principal); I10 Essential (primary) hypertension; E11.9 Type 2 diabetes mellitus without complications; F32.9 Major depressive disorder, single episode, unspecified; G89.4 Chronic pain syndrome; Z86.73 Personal history of transient ischemic attack (TIA), and cerebral infarction without residual deficits; Z98.890 Other specified postprocedural states; Z90.89 Acquired absence of other organs; Z79.899 Other long term (current) drug therapy; Z79.84 Long term (current) use of oral hypoglycemic drugs
CPT/HCPCS: 36415; 71045-TC; 80048-TC; 84484-TC; 85025-TC

== ENCOUNTER 2022-03-08 17:31 | Emergency (ER) | payer MEDICAID ==
[~2022-03-08] VITALS: Ht 172.7 cm; Wt 120.2 kg
[~2022-03-08 17:31] MED LIST changes: +LISI40TA13 PO; -LISI40TA4 PO
[2022-03-08 17:52] VITALS: BP 213/125
[2022-03-08] MEDS ORDERED: HYDROCODONE/APAP 5/325MG TABLET ONE (18:55)
--- NOTE | 2022-03-08 18:57 | NUR ---
URINE SAMPLE COLLECTED
[2022-03-08] MEDS ORDERED: HYDROCODONE/APAP 5/325MG TABLET PO ONE (19:00)
--- NOTE | 2022-03-08 19:37 | NUR ---
Patient does not wish to proceed with medical care recommended by Dr. Key. Patient given information related to possible complications, up to and including , which could occur as a result of leaving the hospital at this time. Patient verbalizes understanding of risks involved due to leaving against medical advice. Patient has signed AMA form.
== END 2022-03-08 19:39 | disposition left against medical advice (07) ==
LOC: ER 17:34
DX: I10 Essential (primary) hypertension (principal); M79.10 Myalgia, unspecified site; Z76.5 Malingerer [conscious simulation]; F41.9 Anxiety disorder, unspecified; F32.A Depression, unspecified; G89.4 Chronic pain syndrome; Z87.442 Personal history of urinary calculi; Z90.89 Acquired absence of other organs; Z79.899 Other long term (current) drug therapy

== ENCOUNTER 2022-03-12 15:44 | Emergency (ER) | payer MEDICAID ==
[~2022-03-12] VITALS: Ht 172.7 cm; Wt 120.2 kg
[2022-03-12] MEDS ORDERED: KETOROLAC TROMETHAMINE INJ 30 MG/ML VIAL ONE (16:23)
[2022-03-12] MEDS ORDERED: CYCLOBENZAPRINE 10 MG TABLET ONE (16:24)
[2022-03-12] MEDS ORDERED: KETOROLAC TROMETHAMINE INJ 60 MG/2 ML VIAL IM ONE (16:30)
[2022-03-12] MEDS ORDERED: CYCLOBENZAPRINE 10 MG TABLET PO ONE (16:30)
[2022-03-12] MEDS ORDERED: CYCL10TA9 PO (17:10)
[2022-03-12] MEDS ORDERED: IBUP-1955 PO (17:10)
[2022-03-12] MEDS ORDERED: TRAM50TA2 PO (17:20)
--- NOTE | 2022-03-12 18:10 | NUR ---
Patient discharged to home in stable condition. Written and verbal after care instructions given. Patient verbalizes understanding of instruction.
[2022-03-12 18:21] VITALS: BP 138/90
== END 2022-03-12 18:23 | disposition home or self-care (01) ==
LOC: ER 15:47
DX: S39.012A Strain of muscle, fascia and tendon of lower back, initial encounter (principal); I10 Essential (primary) hypertension; E11.9 Type 2 diabetes mellitus without complications; F41.9 Anxiety disorder, unspecified; F32.A Depression, unspecified; G89.4 Chronic pain syndrome; Z87.442 Personal history of urinary calculi; Z90.89 Acquired absence of other organs; Z79.899 Other long term (current) drug therapy; W01.0XXA Fall on same level from slipping, tripping and stumbling without subsequent striking against object, initial encounter; Y93.89 Activity, other specified; Y92.89 Other specified places as the place of occurrence of the external cause; Y99.8 Other external cause status
CPT/HCPCS: 99283; 96372; 72110; J1885

== ENCOUNTER 2023-01-13 01:05 | Emergency (ER) | payer MEDICAID ==
[~2023-01-13] VITALS: Ht 180.3 cm; Wt 108.9 kg
[~2023-01-13 01:05] MED LIST changes: +CYCL10TA9 PO; +IBUP-1955 PO; +TRAM50TA2 PO
[2023-01-13 01:09] VITALS: BP 97/51; TEMP 97.7
[2023-01-13] MEDS ORDERED: HYDROMORPHONE INJ 2 MG/ML DISP.SYRIN IM ONE (01:30)
[2023-01-13] MEDS ORDERED: HYDROMORPHONE INJ 2 MG/ML DISP.SYRIN ONE (01:32)
[2023-01-13 07:24] VITALS: O2SAT 97
== END 2023-01-13 07:25 | disposition home or self-care (01) ==
LOC: ER 01:07
DX: M54.9 Dorsalgia, unspecified (principal); I10 Essential (primary) hypertension; E11.9 Type 2 diabetes mellitus without complications; F41.9 Anxiety disorder, unspecified; F32.A Depression, unspecified; Z79.84 Long term (current) use of oral hypoglycemic drugs; Z79.899 Other long term (current) drug therapy; Z86.73 Personal history of transient ischemic attack (TIA), and cerebral infarction without residual deficits; Z87.442 Personal history of urinary calculi
CPT/HCPCS: 99283; 96372; J1170